=== PATIENT | female | born 1945 | race Caucasian/White ===

== ENCOUNTER 2024-04-25 08:03 | Emergency (ER) | payer OTHER, MEDICARE ==
[2024-04-25] MEDS ORDERED: Acetaminophen 500 MG TAB ONE (08:41)
== END 2024-04-25 09:28 | disposition home or self-care (01) ==
LOC: MADERS 08:03
DX: S29.011A Strain of muscle and tendon of front wall of thorax, initial encounter (principal); E78.00 Pure hypercholesterolemia, unspecified; Z79.899 Other long term (current) drug therapy; V89.2XXA Person injured in unspecified motor-vehicle accident, traffic, initial encounter
CPT/HCPCS: 99284